=== PATIENT | female | born 1975 | race Caucasian/White ===

== ENCOUNTER 2017-12-25 12:53 | Observation (INO) | payer MEDICARE, OTHER ==
[2017-12-25] MEDS ORDERED: SODIUM CHLORIDE 0.9% 1,000 ML IV STA (12:57)
[2017-12-25] MEDS ORDERED: NITROGLYCERIN SL TABS 0.4 MG TAB SUBLINGUAL STA (12:57)
--- NOTE | 2017-12-25 13:06 | ED ---
Chest Pain HPI - General Stated Complaint: Chest pain Time Seen by Provider: 12/25/17 12:53 Source: patient, EMS, RN notes reviewed Mode of arrival: EMS - History of Present Illness Initial Comments: This is a 42-year-old female history of anxiety who states she had the onset of a chest heaviness 01 and one half hours ago when she was riding in the car she states she has some radiation down to her right arm and elbow she states that feels heavy. He states the pain was initially 7-8/10 currently not a 3-4. She did take an Ativan about 15 minutes prior to arrival of EMS personnel. She was given 324 mg aspirin. EKG was done a transmitted to the emergency department showing no evidence of acute ST-T wave changes. She denies any cough fevers chills nausea vomiting sweats again she's been under last stress apparently lately. She does have a history of a previous right hip replacement 12 years ago no known history of heart or lung disease herself. MD Complaint: chest pain - Related Data Home Medications Medication Instructions Recorded Confirmed HYDROcodone/APAP 10-325MG [[place] 0.5 - 1 tab PO TID PRN 05/24/16 12/25/17 10-325] LORazepam [Ativan] 1 - 2 mg PO DAILY PRN 05/24/16 12/25/17 Phentermine HCl [Adipex-P] 37.5 mg PO QAM 05/24/16 12/25/17 Allergies Allergy/AdvReac Type Severity Reaction Status Date / Time latex Allergy Swelling Verified 12/25/17 14:46 codeine AdvReac Hallucinati Verified 12/25/17 14:46 ons prochlorperazine AdvReac Hallucinati Verified 12/25/17 14:46 [From Compazine] ons Review of Systems ROS Statement: Those systems with pertinent positive or pertinent negative responses have been documented in the HPI. ROS Other: All systems not noted in ROS Statement are negative. EKG Findings - EKG Results: EKG: interpreted by COLTEN, sinus rhythm (Normal sinus rhythm rate of 80. Interval 140 QRS duration 80 QT since QTC of 386/[address]-T wave changes also no change when compared to the one submitted by EMS.) Past Medical History Additional Past Medical History / Comment(s): hypercholestremia, Hip Dysplasia, Back pain History of Any Multi-Drug Resistant Organisms: None Reported Past Surgical History: Section Additional Past Surgical History / Comment(s): Lap Band Past Psychological History: No Psychological Hx Reported Smoking Status: Current every day smoker Past Alcohol Use History: Occasional Past Drug Use History: None Reported General Exam - General Exam Comments Initial Comments: This is a well-developed well-nourished awake alert oriented 3 female General appearance: alert, anxious Head exam: Present: atraumatic, normocephalic, normal inspection Eye exam: Present: normal appearance, PERRL, EOMI. Absent: scleral icterus, conjunctival injection, periorbital swelling ENT exam: Present: normal exam, mucous membranes moist Neck exam: Present: normal inspection, tenderness. Absent: meningismus, lymphadenopathy Respiratory exam: Present: normal lung sounds bilaterally. Absent: respiratory distress, wheezes, rales, rhonchi, stridor Cardiovascular Exam: Present: regular rate, normal rhythm, normal heart sounds. Absent: systolic murmur, diastolic murmur, rubs, gallop, clicks GI/Abdominal exam: Present: soft, normal bowel sounds. 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 Absent: full ROM, pedal edema, joint swelling, calf tenderness Back exam: Present: normal inspection Neurological exam: Present: alert, oriented X3, CN II-XII intact Psychiatric exam: Present: normal affect, anxious Skin exam: Present: warm, dry, intact, normal color. Absent: rash Course Vital Signs 12/25/17 12/25/17 12:59 14:10 Temperature 97.8 F Pulse Rate 89 76 Respiratory 16 16 Rate Blood Pressure 125/75 125/75 O2 Sat by Pulse 99 100 Oximetry - Reevaluation(s) Reevaluation #1: 12/25/17 14:50 Reevaluation patient reveals that she has no pain at this time she believes the nitroglycerin did help make the chest pressure go away. Chest Pain MDM - MDM Review the imaging shows no acute findings. I did have a discussion with patient family members regarding the findings the patient will be admitted for evaluation for chest pain and suspected angina. Critical Care Time Critical Care Time: Yes Critical Care Time: 31 minutes of critical care time which includes initial presentation with history physical labs x-rays discussed with paramedics monitoring the EMS run. Reevaluation patient responsive therapy. Discussed with patient family regarding findings discussion with the admitting physician admission orders documentation of the above Disposition Clinical Impression: Unstable angina pectoris, Chest pain Disposition: ADMITTED IP TO THIS [facility] Condition: Stable Referrals: Gabriel Love MD [Primary Care Provider] - 1-2 days
[2017-12-25 13:22] LABS: Basophils % (A) 0 %; Eosinophils # (A) 0.1 k/uL (0-0.7); Eosinophils % (A) 1 %; HCT 39.5 % (34.0-46.0); HGB 13.3 gm/dL (11.4-16.0); Lymphocytes # (A) 1.7 k/uL (1.0-4.8); Lymphocytes % (A) 27 %; MCHC 33.8 g/dL (31.0-37.0); MCV 94.6 fL (80.0-100.0); Mean Platelet Volume 7.3; Monocytes # (A) 0.3 k/uL (0-1.0); Monocytes % (A) 5 %; Neutrophils % (A) 64 %; Platelet Count 241 k/uL (150-450); RBC 4.17 m/uL (3.80-5.40); RDW 12.5 % (11.5-15.5); WBC 6.1 k/uL (3.8-10.6)
--- NOTE | 2017-12-25 13:27 | XR ---
EXAMINATION TYPE: XR chest 2V DATE OF EXAM: 12/25/2017 HISTORY: Chest Pain. REFERENCE: NONE. FINDINGS: The lungs are clear. Pleural space are clear. The heart is not enlarged. IMPRESSION: NO ACTIVE INTRATHORACIC DISEASE.
[2017-12-25 13:30] LABS: ALT 31 U/L (9-52); AST 21 U/L (14-36); Albumin 3.9 g/dL (3.5-5.0); Alkaline Phosphatase 63 U/L (38-126); Amylase 43 U/L (30-110); Anion Gap 12 mmol/L; Blood Urea Nitrogen 13 mg/dL (7-17); Calcium 9.2 mg/dL (8.4-10.2); Carbon Dioxide 23 mmol/L (22-30); Chloride 105 mmol/L (98-107); D-Dimer 0.34 mg/L FEU (<0.60); Glucose 88 mg/dL (74-99); Lipase 124 U/L (23-300); Magnesium 2.2 mg/dL (1.6-2.3); Partial Thromboplastin Time 22.4 sec (22.0-30.0); Potassium 4.4 mmol/L (3.5-5.1); Prothrombin Time 10.1 sec (9.0-12.0); Sodium 140 mmol/L (137-145); Total Bilirubin 0.4 mg/dL (0.2-1.3); Total Protein 6.3 g/dL (6.3-8.2)
[2017-12-25 13:40] LABS: Creatine Kinase 48 U/L (30-135)
[2017-12-25 13:54] LABS: Creatine Kinase MB 0.3 ng/mL (0.0-2.4); Troponin I <0.012 ng/mL (0.000-0.034)
[2017-12-25] MEDS ORDERED: HEPARIN SODIUM,PORCINE 5,000 UNIT/ML 1 ML VIAL IV ONE (14:51)
[2017-12-25] MEDS ORDERED: NITROGLYCERIN SL TABS 0.4 MG TAB SUBLINGUAL PRN (14:51)
[2017-12-25] MEDS ORDERED: HYDROcodone/APAP 10-325MG 1 EACH TAB PO PRN (14:54)
[2017-12-25] MEDS ORDERED: SODIUM CHLORIDE 0.9% 1,000 ML IV SCH (15:00)
[2017-12-25] MEDS ORDERED: HEPARIN SODIUM,PORCINE/D5W PMX 25,000 UNIT in DEXTROSE/WATER 1 500ML.BAG IV SCH (15:00)
[2017-12-25 17:07] VITALS: BMI 29.4
[2017-12-25] MEDS: NITROGLYCERIN OINT 1 INCH/GM PACKET TOPICAL SCH ×2 (17:15→22:54)
[2017-12-25 19:53] LABS: Creatine Kinase 42 U/L (30-135)
[2017-12-25 20:06] LABS: Creatine Kinase MB <0.2 ng/mL (0.0-2.4); Troponin I <0.012 ng/mL (0.000-0.034)
[2017-12-25] MEDS: HYDROcodone/APAP 5-325MG 1 EACH TAB PO PRN (21:09)
[2017-12-25] MEDS: LORazepam 1 MG TAB PO PRN (22:19)
[2017-12-25] MEDS ORDERED: RX INFO: IV CONTRAST WAS GIVEN 1 EACH MISC MISCELLANE PRN (23:40)
[2017-12-25 23:47] VITALS: RESP 18
[2017-12-26 01:51] LABS: Creatine Kinase 40 U/L (30-135)
[2017-12-26 02:04] LABS: Creatine Kinase MB <0.2 ng/mL (0.0-2.4); Troponin I <0.012 ng/mL (0.000-0.034)
[2017-12-26 03:20] LABS: Cholesterol 206 mg/dL (<200); HDL Cholesterol 51 mg/dL (40-60); LDL Cholesterol,Calculated 138 mg/dL (0-99); Triglycerides 84 mg/dL (<150)
[2017-12-26] MEDS: NITROGLYCERIN OINT 1 INCH/GM PACKET TOPICAL SCH (05:25)
--- NOTE | 2017-12-26 06:02 | HP ---
HISTORY AND PHYSICAL DATE OF SERVICE: 12/25/17 PRESENTING COMPLAINT: Multiple symptoms. HISTORY OF PRESENTING COMPLAINT: This is a 42-year-old patient of Dr. Love. Chronic stable medical conditions include hypertension, hyperlipidemia, anxiety, and patient has got a weak left leg from hip dysplasia. The patient has had joint replacement, but the leg is still chronically weak. The patient is under some stress because of significant other had left the house for about a week. The patient presents with multitude of symptoms including feeling nausea and dizzy, eyes hurting, sharp pain in the chest, right arm specially feeling numb and having pain. It may be noted that the patient has occasional neck pain and has got a herniated disc in the neck and has followed with Dr. Carrillo in the past. The patient denies any other cardiac symptoms with no radiation to the shoulder. There was no perspiration. There is minimal shortness of breath. Because of these symptoms, the patient was admitted. Patient's significant other is with her. The patient has had panic attacks in the past, but she feels that this episode is different. REVIEW OF SYSTEMS: CONSTITUTIONAL: None. HEENT none. Respiratory as above. Cardiovascular as above. Gastrointestinal none. Genitourinary none. Musculoskeletal: Arthritic pain in the some joints. Dermatological and hematologic, lymphatic none. Psychiatry anxious. Neurological none. PAST HISTORY: Hypertension, hyperlipidemia, left hip dysplasia with joint being replaced, anxiety. PAST SURGICAL HISTORY: Bariatric surgery, , cholecystectomy, joint replacement, lap band, left hip replacement, NovaSure ablation, tubes tied. SOCIAL HISTORY: Lives with daughter and significant other. FAMILY HISTORY: Uterine cancer. HOME MEDICATIONS: 1. [place] 10 half to 1 tablet t.i.d. p.r.n. 2. Adipex-P 37.5 one tab daily. 3. Ativan 1-2 mg daily p.r.n. ALLERGIES: TO LATEX, CODEINE, COMPAZINE. PHYSICAL EXAMINATION: Temperature 98.2, pulse 79, respirations 16, blood pressure 101/73, pulse ox 100% on room air. General appearance: Average built, sitting up, but anxious appearing. Eyes pupils equal, conjunctivae normal. HEENT: External appearance of nose and ears normal. Oral cavity normal. Neck JVD not raised. Mass not palpable. Respiratory effort lungs are clear. Cardiovascular 1st and 2nd sounds normal. No edema. ABDOMEN: Soft, nontender. Liver and spleen not palpable. Lymphatics: No lymph nodes palpable in the neck, axillae or groin. PSYCHIATRY: Alert and oriented x3. Mood and affect anxious-appearing. Neurological pupils are equal. Cranial nerves grossly intact. The patient is weak in the left leg. Otherwise, sensation is grossly intact. Reflexes are equal. INVESTIGATIONS: White count 6.1, hemoglobin 13.3, potassium 4.4, BUN and creatinine is normal. Troponin times two is negative. ProBNP is 87. Chest x-ray, no active disease. EKG normal sinus rhythm. ASSESSMENT: 1. Patient presents with multitude of symptoms including nausea disease, some sharp chest pain, numbness in the arm. I think overall picture is more bed of panic attack given fiancee leaving the house. The patient's presentation is not typical of cardiac, but the patient is concerned about the same and serial cardiac enzymes are in place. We will get a cardiology opinion. Also the patient's symptoms are not compatible with that of a stroke or a TIA. We will get a CT angio of the brain. Highly doubt that to be the case. 2. Essential hypertension. 3. Hyperlipidemia. 4. Anxiety. PLAN: Do a CT angio of the brain. Serial cardiac enzymes. Cardiology and neurology consultation. Also get a carotid Doppler, and EEG. Care was discussed with the patient and significant other at the bedside. Copy to Dr. Love. CLEMENT / MAIA: [id number] /
[2017-12-26] MEDS ORDERED: Phentermine Hcl [Adipex-P] PO SCH (09:00)
[2017-12-26] MEDS ORDERED: ASPIRIN 325 MG TAB PO SCH (09:00)
--- NOTE | 2017-12-26 09:32 | CT ---
EXAMINATION TYPE: CT angio head neck DATE OF EXAM: 12/26/2017 HISTORY: Patient complains of blurry vision, nausea, and right arm weakness/numbness. COMPARISON: NONE CT DLP: 317.1 mGycm. Automated Exposure Control for Dose Reduction was Utilized. TECHNIQUE: CTA scan of the neck is performed with IV Contrast, patient injected with 65 mL of Isovue 370, axial images are obtained, coronal and sagittal reformatted images are reviewed. Three-D recons tructed images are created on an independent workstation and reviewed. FINDINGS: Thyroid gland enhances normally. Lung apices are clear. The visualized portion of the aortic arch demonstrates no significant atherosclerotic change. The lucita gins of the great vessels are widely patent. The visualized portion of the subclavian arteries are widely patent. Common carotid arteries are widely patent bilaterally. Carotid bifurcations are widely patent with no significant stenosis. Vertebral arteries are patent with slight dominance on the left. Hypertrophic change facets are noted within the cervical spine Vertebral basilar system is patent and of normal caliber. Evaluation the mechoopda of [place] demonstrates no diagnostic evidence of sizable aneurysm. IMPRESSION: 1. No significant stenosis involving the carotid artery bifurcations bilaterally. 2. No sizable aneurysm. Consider MRI follow-up given patient's symptoms.
--- NOTE | 2017-12-26 10:25 | ECHOF ---
Referral Reason:chest pain MEASUREMENTS -------- HEIGHT: 152.4 cm WEIGHT: 93.0 kg BP: 86/46 RVIDd: 2.6 cm (< 3.3) IVSd: 1.0 cm (0.6 - 1.1) LVIDd: 4.2 cm (3.9 - 5.3) LVPWd: 0.9 cm (0.6 - 1.1) IVSs: 1.1 cm LVIDs: 3.3 cm LVPWs: 1.2 cm LA Diam: 3.2 cm (2.7 - 3.8) Ao Diam: 2.8 cm (2.0 - 3.7) AV Cusp: 1.8 cm (1.5 - 2.6) LA Diam: 3.3 cm (2.7 - 3.8) EPSS: 0.4 cm MV E Doug: 0.57 m/s MV DecT: 181 ms MV A Doug: 0.59 m/s MV E/A Ratio: 0.97 RAP: 5.00 mmHg RVSP: 20.98 mmHg MV EF SLOPE: 122.83 mm/s (70 - 150) MV EXCURSION: 1.73 cm (> 18.000) FINDINGS -------- Sinus rhythm. This was a technically good study. LV size, wall thickness and systolic function are normal, with an EF greater than 55%. The left jewel tricular size is normal. The right ventricle is normal in size. The left atrial size is normal. The right atrial size is normal. The aortic valve is trileaflet, and appears structurally normal. No aortic stenosis or regurgitation. The mitral valve is normal. Mild mitral regurgitation is present. Mild tricuspid regurgitation present. There is no evidence of pulmonary hypertension. The right v entricular systolic pressure, as measured by Doppler, is 20.98mmHg. There is no pulmonic regurgitation present. The aortic root size is normal. There is no pericardial effusion. CONCLUSIONS -------- 1. Sinus rhythm. 2. This was a technically good study. 3. LV size, wall thickness and systolic function are normal, with an EF greater than 55%. 4. The left ventricular size is normal. 5. The left atrial size is normal. 6. The aortic valve is trileaflet, and appears structurally normal. No aortic stenosis or regurgitati on. 7. Mild mitral regurgitation is present. 8. Mild tricuspid regurgitation present. 9. There is no evidence of pulmonary hypertension. 10. There is no pulmonic regurgitation present. 11. The aortic root size is normal. 12. There is no pericardial effusion. SIFTER OPERATOR: Kinza Mark RDCS
[2017-12-26] MEDS: HYDROcodone/APAP 5-325MG 1 EACH TAB PO PRN (11:16)
[2017-12-26 11:26] VITALS: BP 112/63; PULSE 95; TEMP 97.9
--- NOTE | 2017-12-26 11:32 | P.CRDCN ---
History of Present Illness Consult date: 12/26/17 History of present illness: Mrs. Rebolledo is a pleasant 42-year-old female past medical history significant for hip dysplasia s/p hip replacement, dyslipidemia, nicotine dependence and anxiety with panic attacks. She denies history of coronary artery disease, hypertension or diabetes mellitus. She has no family history of coronary artery disease. We have been asked to see her in consultation for chest pain. She states she was at home yesterday afternoon when she developed nausea, dizziness and her vision went black momentarily. She then developed a pain down her right arm described as heaviness with a sharp pain in the left precordial region. The pain was brief and went away. The right arm continued to feel discomfort and then she started having shortness of breath. After her breathing worsening she started having a tightness across her entire anterior chest wall from shoulder to shoulder. She decided to come to the hospital for evaluation and her significant other was driving her. On the ride here the right arm discomfort intensified and began to feel so heavy that she couldn't lift it. She took 2 mg of Ativan, pulled over and called EMS. EMS gave her aspirin and SL. By the time she arrived at the hospital the chest pain had resolved but the right arm heaviness persisted. She denies palpitations, diaphoresis or vomiting. She also denies radiation to the left arm, back, neck or jaw. She has had no further symptoms of chest pain since admission. EKG reveals sinus mechanism with no acute ST or T-wave abnormalities. Chest xray negative for an acute cardiopulmonary process. Laboratory data reviewed, hgb 13.3, plt 241, d-dimer 0.34, sodium 140, potassium 4.4, creatinine 0.8, magnesium 2.2, cardiac enzymes negative 3, LDL 138, HDL 51. Current medications include adipex, norco and ativan. Review of Systems The time of my exam: CONSTITUTIONAL: Denies fever. Denies chills. EYES: Denies blurred vision. Denies vision changes. Denies eye pain. EARS, NOSE, MOUTH & THROAT: Denies headache. Denies sore throat. Denies ear pain. CARDIOVASCULAR: Denies chest pain. Denies shortness of breath. Denies orthopnea. Denies PND. Denies palpitations. RESPIRATORY: Denies cough. GASTROINTESTINAL: Denies abdominal pain. Denies diarrhea. Denies constipation. Denies nausea. Denies vomiting. MUSCULOSKELETAL: Complains of right arm discomfort. INTEGUMENTARY: Denies pruitis. Denies rash. NEUROLOGIC: Denies numbness. Denies tingling. Denies weakness. PSYCHIATRIC: Denies anxiety. Denies depression. ENDOCRINE: Denies fatigue. Denies weight change. Denies polydipsia. Denies polyurina. GENITOURINARY: Denies burning, hematuria or urgency with micturation. HEMATOLOGIC: Denies history of anemia. Denies bleeding. Past Medical History Past Medical History: Hyperlipidemia Additional Past Medical History / Comment(s): hypercholestremia, Hip Dysplasia, Back pain History of Any Multi-Drug Resistant Organisms: None Reported Past Surgical History: Bariatric Surgery, Section, Cholecystectomy, Joint Replacement Additional Past Surgical History / Comment(s): Lap Band, left hip total replacement, Novasure ablation, Tubes tied Past Anesthesia/Blood Transfusion Reactions: Previous Problems w/ Anesthesia, Postoperative Nausea & Vomiting (PONV) Additional Past Anesthesia/Blood Transfusion Reaction / Comment(s): vision problems with local (c-sect) Past Psychological History: No Psychological Hx Reported Smoking Status: Former smoker Past Alcohol Use History: Occasional Past Drug Use History: None Reported Additional Drug Use History / Comment(s): Patient uses 300mg, and considers herself a social drinking - Past Family History Mother Family Medical History: Cancer Additional Family Medical History / Comment(s): CA (uterine), Father Family Medical History: Hypertension, Memory Impairment Additional Family Medical History / Comment(s): closed head injury that caused HTN. 2016 Medications and Allergies Home Medications Medication Instructions Recorded Confirmed Type HYDROcodone/APAP 10-325MG [[place] 1 tab PO TID PRN 05/24/16 12/25/17 History 10-325] LORazepam [Ativan] 1 - 2 mg PO DAILY PRN 05/24/16 12/25/17 History Phentermine HCl [Adipex-P] 37.5 mg PO QAM 05/24/16 12/25/17 History Allergies Allergy/AdvReac Type Severity Reaction Status Date / Time latex Allergy Swelling Verified 12/25/17 14:46 codeine AdvReac Hallucinati Verified 12/25/17 14:46 ons prochlorperazine AdvReac Hallucinati Verified 12/25/17 14:46 [From Compazine] ons Physical Exam Vitals: Vital Signs Temp Pulse Pulse Resp BP BP Pulse Ox 12/26/17 07:10 98.0 F 80 18 97/53 97 12/26/17 04:00 98.2 F 72 18 86/46 96 12/26/17 00:00 88 18 12/25/17 23:47 98.6 F 88 18 113/62 98 12/25/17 20:00 97.8 F 90 16 119/63 100 12/25/17 16:39 98 12/25/17 16:08 98.2 F 79 16 111/73 100 12/25/17 15:48 97.9 F 90 18 126/69 98 12/25/17 14:55 84 16 142/81 99 12/25/17 14:10 76 16 125/75 100 12/25/17 12:59 97.8 F 89 16 125/75 99 Intake and Output 12/25/17 12/26/17 12/26/17 22:59 06:59 14:59 Intake Total 1843.112 Balance 1843.112 Intake: IV 200 Heparin Sodium,Porcine/ 200 D5w Pmx 25,000 unit In Dextrose/Water 1 500ml. bag @ 10.76 UNITS/KG/HR 20.01 mls/hr IV .Q24H [facility] Rx#:[id number] Intake, IV Titration 543.112 Amount Heparin Sodium,Porcine/ 303.112 D5w Pmx 25,000 unit In Dextrose/Water 1 500ml. bag @ 10.76 UNITS/KG/HR 20.01 mls/hr IV .Q24H [facility] Rx#:[id number] Sodium Chloride 0.9% 1, 240 000 ml @ 20 mls/hr IV . Q24H [facility] Rx#:[id number] Oral 1100 Other: Voiding Method Toilet Toilet # Voids 2 Weight 92.986 kg Blood pressure 97/53 heart rate 88 afebrile maintaining oxygen saturation on room air GENERAL: This is a 42-year-old female in no apparent distress at the time of my examination. HEENT: Head is atraumatic, normocephalic. Pupils are equal, round. Sclerae anicteric. Conjunctivae are clear. Mucous membranes of the mouth are moist. Neck is supple. There is no jugular venous distention. No carotid bruit is heard. LUNGS: Clear to auscultation no wheezes, rales or rhonchi. No chest wall tenderness is noted on palpation or with deep breathing. HEART: Regular rate and rhythm without murmurs, rubs or gallops. S1 and S2 heard. ABDOMEN: Soft, nontender. Bowel sounds are heard. No organomegaly noted. EXTREMITIES: No evidence of peripheral edema and no calf tenderness noted. VASCULAR: Radial and dorsalis pedis pulses palpated, no evidence of clubbing. NEUROLOGIC: Patient is awake, alert and oriented x3. Results 12/25/17 13:10 12/25/17 13:10 Cardiac Enzymes 12/25/17 12/25/17 12/25/17 Range/Units 13:10 13:10 19:20 AST 21 (14-36) U/L CK-MB (CK-2) 0.3 <0.2 (0.0-2.4) ng/mL Troponin I <0.012 <0.012 (0.000-0.034) ng/mL 12/26/17 Range/Units 01:21 AST (14-36) U/L CK-MB (CK-2) <0.2 (0.0-2.4) ng/mL Troponin I <0.012 (0.000-0.034) ng/mL Coagulation 12/25/17 12/26/17 Range/Units 13:10 01:21 PT 10.1 (9.0-12.0) sec APTT 22.4 31.6 H (22.0-30.0) sec Lipids 12/25/17 Range/Units 13:10 Triglycerides 84 (<150) mg/dL Cholesterol 206 H (<200) mg/dL HDL Cholesterol 51 (40-60) mg/dL CBC 12/25/17 Range/Units 13:10 WBC 6.1 (3.8-10.6) k/uL RBC 4.17 (3.80-5.40) m/uL Hgb 13.3 (11.4-16.0) gm/dL Hct 39.5 (34.0-46.0) % Plt Count 241 (150-450) k/uL Comprehensive Metabolic Panel 12/25/17 Range/Units 13:10 Sodium 140 (137-145) mmol/L Potassium 4.4 (3.5-5.1) mmol/L Chloride 105 (98-107) mmol/L Carbon Dioxide 23 (22-30) mmol/L BUN 13 (7-17) mg/dL Creatinine 0.80 (0.52-1.04) mg/dL Glucose 88 (74-99) mg/dL Calcium 9.2 (8.4-10.2) mg/dL AST 21 (14-36) U/L ALT 31 (9-52) U/L Alkaline Phosphatase 63 (38-126) U/L Total Protein 6.3 (6.3-8.2) g/dL Albumin 3.9 (3.5-5.0) g/dL Current Medications Generic Name Dose Route Start Last Admin Trade Name Freq PRN Reason Stop Dose Admin Hydrocodone Bitart/Acetaminophen 1 each 12/25/17 20:56 12/25/17 21:09 [place] 5-325 PO 1 each Q4HR PRN Administration Pain Aspirin 325 mg 12/26/17 09:00 Aspirin PO DAILY [facility] Sodium Chloride 1,000 mls @ 20 mls/hr 12/25/17 15:00 12/25/17 16:12 [place]ine 0.9% IV Not Given .Q24H [facility] Lorazepam 1 mg 12/25/17 14:54 12/25/17 22:19 Ativan PO 1 mg DAILY PRN Administration Anxiety Miscellaneous Information 1 each 12/25/17 23:40 Rx Info: Iv Contrast Was Given MISCELLANE 12/27/17 23:41 DAILY PRN Per Protocol Nitroglycerin 0.4 mg 12/25/17 14:51 Nitrostat SUBLINGUAL Q5M PRN Chest Pain Phentermine Hcl [ 37.5 mg 12/26/17 09:00 Adipex-P] PO QAM [facility] Intake and Output 12/25/17 12/26/17 12/26/17 22:59 06:59 14:59 Intake Total 1843.112 Balance 1843.112 Intake: IV 200 Heparin Sodium,Porcine/ 200 D5w Pmx 25,000 unit In Dextrose/Water 1 500ml. bag @ 10.76 UNITS/KG/HR 20.01 mls/hr IV .Q24H [facility] Rx#:[id number] Intake, IV Titration 543.112 Amount Heparin Sodium,Porcine/ 303.112 D5w Pmx 25,000 unit In Dextrose/Water 1 500ml. bag @ 10.76 UNITS/KG/HR 20.01 mls/hr IV .Q24H [facility] Rx#:[id number] Sodium Chloride 0.9% 1, 240 000 ml @ 20 mls/hr IV . Q24H [facility] Rx#:[id number] Oral 1100 Other: Voiding Method Toilet Toilet # Voids 2 Weight 92.986 kg 12/25/17 13:10 12/25/17 13:10 Assessment and Plan Assessment: ASSESSMENT 1. Chest pain, atypical. An acute coronary event has been ruled out with no EKG evidence of ischemia and negative cardiac enzymes. 2. History of hyperlipidemia 3. Chronic nicotine dependence 4. History of anxiety PLAN An acute coronary event has been ruled out. Discontinue heparin infusion and nitropaste. Echocardiogram has been obtained and reviewed with no significant abnormalities. Increase activity and ambulation on the unit. No further cardiac work-up at this time. Thank you kindly for this consultation. Nurse Practitioner note has been reviewed, I agree with a documented findings and plan of care. Patient was seen and examined.
[2017-12-26] MEDS: LORazepam 1 MG TAB PO PRN (12:04)
--- NOTE | 2017-12-26 13:00 | XR ---
EXAMINATION TYPE: XR cervical spine w flex/ext DATE OF EXAM: 12/26/2017 COMPARISON: NONE HISTORY: Pain TECHNIQUE: Seven views are submitted including flexion-extension lateral views. FINDINGS: The odontoid is intact. There are no compression deformities. The prevertebral soft tissue structur es are within normal limits. There is a 2 mm anterolisthesis of C4 on C5 and C5 and C6 on flexion vi ews and 2 mm retrolisthesis of C2-3, C3-4 and C4-C5 on extension views. IMPRESSION: 1. There appears to be alignment adjustment on flexion and extension views as discussed above which c ould be related to ligamentous laxity. Correlation with MRI could BE obtained as clinically warranted .
--- NOTE | 2017-12-26 19:18 | EEG ---
ELECTROENCEPHALOGRAM REPORT DATE OF SERVICE: 12/26/2017. REASON FOR TESTING: Dizziness. DESCRIPTION OF THE PROCEDURE: This EEG was performed using a 21 channel digital electroencephalograph, following international 10-20 system. DESCRIPTION OF THE RECORDING: From the beginning of the tracing, with patient's eyes closed, the background rhythm was mostly consisting of 9 Hz alpha frequency in the posterior occipital leads. No obvious asymmetry is seen. Photic stimulation was performed with a minimal driving response seen. No pathological waves were elicited. Hyperventilation was not performed. The patient does reach stage II of sleep during the tracing and occasional sleep spindles and K complexes are seen. No epileptiform discharges were seen. Occasional movement and muscle artifacts are seen. Her EKG lead showed a regular rate and rhythm. INTERPRETATION: This asleep and awake EEG can be considered within normal limits. There was no asymmetry seen. No epileptiform discharges were noticed. The absence of epileptiform discharges does not rule out the diagnosis of epilepsy, therefore, clinical correlation is recommended. CLEMENT / MAIA: [id number] /
--- NOTE | 2017-12-27 08:25 | DS ---
DISCHARGE SUMMARY DATE OF ADMISSION: 12/25/2017 DATE LEFT AGAINST MEDICAL ADVICE: 12/26/2017 HOSPITAL COURSE: This patient presented with multitude of symptoms more compatible with what appeared to be maybe panic attack. She did not wait for a full workup to be done because of symptoms of dizziness, lightheaded and hand numbness. Patient's angio CT of the brain and neck was unremarkable. EEG was within normal limits. The cervical spine x-ray was suggestive of some ligament laxity. A 2-D echocardiogram showed preserved LV function. The patient did not wait for a formal neurological consultation, wanted to leave AGAINST MEDICAL ADVICE. I asked her to return if things change. CONSULTATION: Dr. Oakley from Cardiology; Dr. Dobbs from Neurology. PHYSICAL EXAMINATION: On examination, lungs are clear. CARDIOVASCULAR: First and second sounds normal. DISCHARGE MEDICATIONS: The patient is not given formal discharge medication because she is leaving AMA. The patient told to follow up with Dr. Love. MMODL / IJN: [id number] /
== END 2017-12-26 12:57 | disposition left against medical advice (07) ==
LOC: EC 12:53 → 3SUR 14:51 → 3OBS 12-26 07:17
PROVIDERS: ADMIT Hospitalist; ATTEND Hospitalist
DX: R07.89 Other chest pain (principal); R42 Dizziness and giddiness; R20.0 Anesthesia of skin; R11.0 Nausea; F41.9 Anxiety disorder, unspecified; I10 Essential (primary) hypertension; M54.9 Dorsalgia, unspecified; E78.5 Hyperlipidemia, unspecified; R53.1 Weakness; F17.200 Nicotine dependence, unspecified, uncomplicated; Z98.84 Bariatric surgery status; Z79.899 Other long term (current) drug therapy; Z96.641 Presence of right artificial hip joint; Q65.89 Other specified congenital deformities of hip; Z88.5 Allergy status to narcotic agent; Z88.8 Allergy status to other drugs, medicaments and biological substances; Z91.040 Latex allergy status; Z82.49 Family history of ischemic heart disease and other diseases of the circulatory system; Z80.49 Family history of malignant neoplasm of other genital organs
CPT/HCPCS: 99291 ×2; 96365 ×2; 96376 ×2; 96361 ×3; 96366 ×2; 36415; 94760; 95819; 93306; 85379; 83880; 80061; 80053; 82150; 82550 ×2; 82553 ×2; 83690; 83735; 84484 ×2; 85025; 85610; 85730 ×2; 72052; 71046; 70496; 70498; G0378 ×2; J1644 ×2; Q9967

== ENCOUNTER → 2018-07-12 | Outpatient (CLI) | payer MEDICARE, OTHER ==
--- NOTE | 2018-07-12 14:29 | CT ---
EXAMINATION TYPE: CT abdomen pelvis w con DATE OF EXAM: 07/12/2018 COMPARISON: 05/22/2007 HISTORY: 43-year-old female complains of generalized pelvic pain. TECHNIQUE: Contiguous axial scanning of the abdomen and pelvis following administration of 100 ml Iso ilir 300 IV contrast. Delayed images through the kidneys and coronal/sagittal reconstructions perform ed. CT DLP: 1115.4 mGycm Automated exposure control for dose reduction was used. FINDINGS: Heart normal size without pericardial effusion. Stable appearance to the patient's lap band. Some focal fat seen along the anterior falciform ligament. No focal liver lesion. Portal venous syste m is patent. Stable mild prominence the bile duct status post cholecystectomy. Adrenal glands within normal limits. Stable bulbous appearance to the pancreatic tail likely normal v ariation. Calcified granulomas within the spleen. Bilateral extrarenal pelves with symmetric uptake and excretion of contrast from the kidneys. No dilated small bowel, free fluid, or free air. There is some focal thickening in the ileocecal region likely represents adherent stool material, ref er to axial image 53. Normal appendix. No mesenteric or retroperitoneal lymphadenopathy. Uterus is anteverted measuring 11.7 cm. There is a round 2.8 cm hypodense lesion in the anterior fund us which appears new from prior. Follicular change in both ovaries. Bilateral tubal ligation clips. N o abnormal fluid collection the pelvis or pelvic lymphadenopathy. Pelvic phleboliths. Bladder is urin e distended. Bones: Left hip total arthroplasty is demonstrated. Mild facet arthropathy lower lumbar spine. Mild e ndplate spondylosis visualized lower thoracic spine. IMPRESSION: HYPERVASCULAR ROUND MASS WITHIN THE ANTERIOR FUNDUS MEASURES 2.8 CM AND WAS NOT CLEARLY SEEN IN 2007. CONSIDER A DEGENERATING FIBROID. THIS SEEMS SEPARATE FROM THE ENDOMETRIUM. FEMALE PELVIC MRI WITHOUT AND WITH CONTRAST COULD FURTHER EVALUATE IF INDICATED. FOLLICULAR CHANGE IN BOTH OVARIES. NO PELVIC FREE FLUID.
== END | disposition home or self-care (01) ==
LOC: RADCTMAIN 11:32
PROVIDERS: ATTEND Family Medicine
DX: R19.09 Other intra-abdominal and pelvic swelling, mass and lump (principal); N83.8 Other noninflammatory disorders of ovary, fallopian tube and broad ligament; R10.2 Pelvic and perineal pain
CPT/HCPCS: 74177; Q9967

== ENCOUNTER → 2018-10-24 | Outpatient (CLI) | payer MEDICARE, OTHER ==
[2018-10-24 13:18] VITALS: BP 115/84; PULSE 88; RESP 16; TEMP 97.3; BMI 32.0
--- NOTE | 2018-10-24 14:35 | P.BASOAP ---
Subjective Progress Note Date: 10/24/18 Principal diagnosis: Morbid obesity, abdominal pain Patient here today for routine bariatric follow-up. Relates that she has had decent restriction from her lap band. She has gained some weight over the last 1 year approximately 10-15 pounds. Patient has had complaints of pain in the right lower quadrant. This is been associated with heavier menstrual flow. Patient concerned about fibroids found on recent radiologic workup. She is interested in hysterectomy apparently. No nausea or vomiting. No reflux. Currently using Adipex daily. Objective - Vital Signs Vital signs: Vital Signs Temp 97.3 F L 10/24/18 13:15 Pulse 88 10/24/18 13:15 Resp 16 10/24/18 13:15 BP 115/84 10/24/18 13:15 Pulse Ox Intake & Output 10/23/18 10/24/18 10/24/18 18:59 06:59 18:59 Weight 101.151 kg - Exam Abdomen: Soft, mild right lower quadrant tenderness, no rebound or guarding Assessment/Plan (1) Morbid obesity Narrative/Plan: Patient doing well from a bariatric standpoint. Continue band a current level. 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 Plan: Date: 10/24/18 Initial Weight: 101.151 kg Initial BMI: 32.0 Current Weight: 101.151 kg Current BMI: 32.0 Type of Surgery: Total Volume in Band: Previous Volume: Volume Removed: Volume Added: Band Size:
== END | disposition home or self-care (01) ==
LOC: BARWHC3 13:08
PROVIDERS: ATTEND Surgery
DX: R10.31 Right lower quadrant pain (principal); E66.01 Morbid (severe) obesity due to excess calories; D25.9 Leiomyoma of uterus, unspecified; Z79.899 Other long term (current) drug therapy; Z98.84 Bariatric surgery status; Z68.32 Body mass index [BMI] 32.0-32.9, adult
CPT/HCPCS: 99211

== ENCOUNTER 2019-01-11 07:02 | Emergency (ER) | payer MEDICARE, OTHER ==
[2019-01-11] MEDS ORDERED: KETOROLAC 30 MG/ML 1 ML VIAL IVP STA (07:33)
[2019-01-11] MEDS ORDERED: cefTRIAXone IN SWFI 1,000 MG/10 ML SYRINGE IVP STA (07:33)
[2019-01-11] MEDS ORDERED: methylPREDNISolone SOD SUCCI 125 MG/2 ML VIAL IV STA (07:33)
[2019-01-11] MEDS ORDERED: SODIUM CHLORIDE 0.9% 1,000 ML IV ONE (07:33)
--- NOTE | 2019-01-11 07:38 | ED ---
ENT HPI - General Chief complaint: ENT Stated complaint: ENT, ALOK Time Seen by Provider: 01/11/19 07:11 Source: patient, RN notes reviewed, old records reviewed Mode of arrival: wheelchair Limitations: physical limitation - History of Present Illness Initial comments: Patient is a 43-year-old female presents emergency department today for evaluation for sore throat, dizziness, unable to swallow for the past 3 days. Patient reports her son has a history of recent strep. Patient denies any recent fever, chills, shortness of breath, chest pain, back pain, abdominal pain, nausea vomiting, numbness or tingling, dysuria or hematuria, constipation or diarrhea, headaches or visual changes, or any other current symptoms - Related Data Home Medications Medication Instructions Recorded Confirmed HYDROcodone/APAP 10-325MG [[place] 1 tab PO TID PRN 05/24/16 01/11/19 10-325] LORazepam [Ativan] 1 - 2 mg PO DAILY PRN 05/24/16 01/11/19 Phentermine HCl [Adipex-P] 37.5 mg PO QAM 05/24/16 01/11/19 Amoxicillin 500 mg PO ONCE 01/11/19 01/11/19 Ibuprofen [Motrin Ib] 800 mg PO Q6H PRN 01/11/19 01/11/19 Previous Rx's Medication Instructions Recorded Azithromycin [Zithromax Z-pack] 250 mg PO DIRECTED #6 tab 01/11/19 methylPREDNISolone [Medrol Dose 4 mg PO DIRECTED #1 pack 01/11/19 Pack] Allergies Allergy/AdvReac Type Severity Reaction Status Date / Time latex Allergy Swelling Verified 01/11/19 07:28 codeine AdvReac Hallucinati Verified 01/11/19 07:28 ons prochlorperazine AdvReac Hallucinati Verified 01/11/19 07:28 [From Compazine] ons Review of Systems ROS Statement: Those systems with pertinent positive or pertinent negative responses have been documented in the HPI. ROS Other: All systems not noted in ROS Statement are negative. Past Medical History Past Medical History: Hyperlipidemia Additional Past Medical History / Comment(s): hypercholestremia, Hip Dysplasia, Back pain History of Any Multi-Drug Resistant Organisms: None Reported Past Surgical History: Bariatric Surgery, Section, Cholecystectomy, Marti int Replacement Additional Past Surgical History / Comment(s): Lap Band, left hip total replacement, Novasure ablation, Tubes tied Past Anesthesia/Blood Transfusion Reactions: Previous Problems w/ Anesthesia, Postoperative Nausea & Vomiting (PONV) Additional Past Anesthesia/Blood Transfusion Reaction / Comment(s): vision pr oblems with local (c-sect) Past Psychological History: No Psychological Hx Reported Smoking Status: Former smoker Past Alcohol Use History: Occasional Past Drug Use History: None Reported - Past Family History Mother Family Medical History: Cancer Additional Family Medical History / Comment(s): CA (uterine), Father Family Medical History: Hypertension, Memory Impairment Additional Family Medical History / Comment(s): closed head injury that caused HTN. 2017 General Exam - General Exam Comments Initial Comments: 43-year-old female. Alert and oriented. No distress. Limitations: physical limitation Head exam: Present: atraumatic, normocephalic, normal inspection Eye exam: Present: normal appearance, PERRL, EOMI. Absent: scleral icterus, conjunctival injection, periorbital swelling ENT exam: Present: normal exam, mucous membranes moist. Absent: other (Erythematous oropharynx, significant exudates noted.) Neck exam: Present: normal inspection. Absent: tenderness, meningismus, lymphadenopathy Respiratory exam: Present: normal lung sounds bilaterally. Absent: respiratory distress, wheezes, rales, rhonchi, stridor Cardiovascular Exam: Present: regular rate, normal rhythm, normal heart sounds. Absent: systolic murmur, diastolic murmur, rubs, gallop, clicks GI/Abdominal exam: Present: soft, normal bowel sounds. Absent: distended, tenderness, guarding, rebound, rigid Extremities exam: Present: normal inspection, full ROM, normal capillary refill. Absent: tenderness, pedal edema, joint swelling, calf tenderness Back exam: Present: normal inspection Neurological exam: Present: alert, oriented X3, CN II-XII intact Psychiatric exam: Present: normal affect, normal mood Skin exam: Present: warm, dry, intact, normal color. Absent: rash Course Vital Signs 01/11/19 07:08 Temperature 97.7 F Pulse Rate 106 H Respiratory 16 Rate Blood Pressure 106/69 O2 Sat by Pulse 99 Oximetry Medical Decision Making - Medical Decision Making Patient is a 43-year-old female process returns today with complaints of sore throat difficulty swallowing for the past 2 days. She has significant exudate and erythematous oropharynx. Son recently is positive for strep. Patient was given fluids states she feels dizzy, scant Toradol slight Medrol and a gram of Rocephin. Patient will be discharged at this time with prescription for azithromycin patient's rapid strep was negative however they does appear to be somewhat strep. Discussed appropriate follow-up with primary care doctor. An discharge and steroid as well. - Lab Data Lab Results 01/11/19 Range/Units 08:00 Group A Strep Rapid Negative (Negative) Disposition Clinical Impression: Pharyngitis Disposition: HOME SELF-CARE Condition: Good Instructions (If sedation given, give patient instructions): Pharyngitis (ED) Additional Instructions: Ice to rest, increase fluid intake. Take medication as prescribed. Should she do frequent to water rinses. Return to the emergency department if any alarming signs or symptoms occur. Prescriptions: methylPREDNISolone [Medrol Dose Pack] 4 mg PO DIRECTED #1 pack Azithromycin [Zithromax Z-pack] 250 mg PO DIRECTED #6 tab Is patient prescribed a controlled substance at d/c from ED?: No Referrals: Gabriel Love MD [Primary Care Provider] - 1-2 days Time of Disposition: 09:11
[2019-01-11 09:36] VITALS: BP 126/77; PULSE 108; RESP 18; TEMP 98
== END 2019-01-11 09:38 | disposition home or self-care (01) ==
LOC: EC 07:02
DX: J02.9 Acute pharyngitis, unspecified (principal); R42 Dizziness and giddiness; R06.00 Dyspnea, unspecified; Z87.891 Personal history of nicotine dependence; Z90.49 Acquired absence of other specified parts of digestive tract; Z96.642 Presence of left artificial hip joint; Z98.84 Bariatric surgery status; Z98.890 Other specified postprocedural states; Z79.899 Other long term (current) drug therapy; Z88.5 Allergy status to narcotic agent; Z88.8 Allergy status to other drugs, medicaments and biological substances; Z91.048 Other nonmedicinal substance allergy status
CPT/HCPCS: 87081; 87430; 99285; 96374; 96375; 96361 ×2; J2930; J0696

== ENCOUNTER 2019-03-13 16:28 | Emergency (ER) | payer MEDICARE, OTHER ==
[2019-03-13 16:34] VITALS: RESP 20
[2019-03-13 17:39] LABS: Basophils % (A) 0 %; Eosinophils # (A) 0.1 k/uL (0-0.7); Eosinophils % (A) 1 %; HCT 41.6 % (34.0-46.0); HGB 13.6 gm/dL (11.4-16.0); Lymphocytes # (A) 1.7 k/uL (1.0-4.8); Lymphocytes % (A) 24 %; MCH 32.4 pg (25.0-35.0); MCHC 32.7 g/dL (31.0-37.0); MCV 99.1 fL (80.0-100.0); Mean Platelet Volume 7.2; Monocytes # (A) 0.4 k/uL (0-1.0); Monocytes % (A) 5 %; Neutrophils # (A) 4.8 k/uL (1.3-7.7); Neutrophils % (A) 69 %; Platelet Count 234 k/uL (150-450); RDW 13.8 % (11.5-15.5); WBC 7.1 k/uL (3.8-10.6)
--- NOTE | 2019-03-13 17:44 | XR ---
EXAMINATION TYPE: XR chest 2V DATE OF EXAM: 03/13/2019 COMPARISON: NONE TECHNIQUE: PA and lateral views submitted. HISTORY: Chest pain FINDINGS: The lungs are clear and there is no pneumothorax, pleural effusion, or focal pneumonia. IMPRESSION: 1. No acute process.
[2019-03-13 17:46] LABS: INR 0.9 (<1.2); Partial Thromboplastin Time 23.3 sec (22.0-30.0); Prothrombin Time 9.8 sec (9.0-12.0)
[2019-03-13 17:49] LABS: ALT 21 U/L (9-52); AST 24 U/L (14-36); African American GFR (CKD) >90 (>60 ml/min/1.73 sqM); Albumin 4.1 g/dL (3.5-5.0); Alkaline Phosphatase 57 U/L (38-126); Anion Gap 8 mmol/L; Blood Urea Nitrogen 16 mg/dL (7-17); Calcium 9.2 mg/dL (8.4-10.2); Carbon Dioxide 26 mmol/L (22-30); Chloride 105 mmol/L (98-107); Glucose 88 mg/dL (74-99); Magnesium 2.4 mg/dL (1.6-2.3); Potassium 4.1 mmol/L (3.5-5.1); Sodium 139 mmol/L (137-145); Total Bilirubin 0.5 mg/dL (0.2-1.3); Total Protein 6.7 g/dL (6.3-8.2)
[2019-03-13] MEDS ORDERED: SODIUM CHLORIDE 0.9% 1,000 ML IV STA (18:36)
--- NOTE | 2019-03-13 18:38 | ED ---
General Adult HPI - General Chief complaint: Chest Pain Stated complaint: Chest pain, hard to speak Time Seen by Provider: 03/13/19 16:34 Source: patient Mode of arrival: ambulatory Limitations: no limitations - History of Present Illness Initial comments: Dictation was produced using [employer] dictation software. please excuse any gramma tical, word or spelling errors. Chief Complaint: 43-year-old female presents with chest pain and feeling as if the world is moving in slow motion. History of Present Illness: Patient's a 43-year-old female she denies any significant medical history. She states that over the last 12 hours she feels as though the room is moving in slow motion. She received bad news in the family recently. Yesterday they were drinking alcohol excessively. She states that today she also had some chest pain she describes the pain as sharp. It is not exacerbated with exertion. Does not radiate to the jaw or shoulder. No associated diaphoresis. Patient has any history of cardiac disease. No family of cardiac disease. She does feel some mild shortness of breath. The ROS documented in this emergency department record has been reviewed and confirmed by me. Those systems with pertinent positive or negative responses have been documented in the HPI. All other systems are other negative and/or noncontributory. PHYSICAL EXAM: General Impression: Alert and oriented x3, not in acute distress HEENT: Normocephalic atraumatic, extra-ocular movements intact, pupils equal and reactive to light bilaterally, mucous membranes moist. Cardiovascular: Heart regular rate and rhythm, S1&S2 audible, no murmurs, rubs or gallops Chest: Lungs clear to auscultation bilaterally, no rhonchi, no wheeze, no rales Abdomen: Bowel sounds present, abdomen soft, non-tender, non-distended, no organomegaly Musculoskeletal: Pulses present and equal in all extremities, no peripheral edema Motor: no focal deficits noted Neurological: CN II-XII grossly intact, no focal motor or sensory deficits noted Skin: Intact with no visualized rashes Psych: Normal affect and mood ED course: 43-year-old female presents with atypical chest pain. Does presents with vague symptoms of interpreted world is moving slowly. She is with his significant other who feels as though this is secondary to stress. She is other stone well-appearing at this time. Physical examination is benign. As upon arrival shows pulse rate of 104, rest of vital signs within acceptable limits. EKGs benign. Laboratory evaluation obtained. CBC, coag panel, metabolic panel is unremarkable. Patient does have an magnesium that slightly high at 2.4. Rest of labs unremarkable. Chest x-ray is nonacute. Patient given intravenous fluids. She requests something for anxiety and her usual unremarkable. His medications are given to her. At this point there is no clear source of what is causing patient's "wooziness." She is told that there does not appear to be anything life threatening at this time. She is alert and oriented 4. She is appears comfortable. She does not have any focal neurologic deficits. Patient told to follow-up with her primary care physician for outpatient management of her symptoms. Patient's chest symptoms are atypical. At this point patient's clinical presentation is not significant for acute cardiopulmonary process at this time. EKG interpretation: Ventricular rate 91, normal sinus rhythm, CA interval 150, care 78, QTc 450. No CA prolongation, no QTC prolongation, no ST or T-wave changes noted. . Overall, this EKG is unremarkable - Related Data Home Medications Medication Instructions Recorded Confirmed HYDROcodone/APAP 10-325MG [[place] 0.5 - 1 tab PO HS 05/24/16 03/13/19 10-325] LORazepam [Ativan] 2 mg PO DAILY PRN 05/24/16 03/13/19 Phentermine HCl [Adipex-P] 37.5 mg PO QAM 05/24/16 03/13/19 Allergies Allergy/AdvReac Type Severity Reaction Status Date / Time latex Allergy Swelling Verified 03/13/19 16:51 codeine AdvReac Hallucinati Verified 03/13/19 16:51 ons prochlorperazine AdvReac Hallucinati Verified 03/13/19 16:51 [From Compazine] ons Review of Systems ROS Statement: Those systems with pertinent positive or pertinent negative responses have been documented in the HPI. ROS Other: All systems not noted in ROS Statement are negative. Past Medical History Past Medical History: Hyperlipidemia Additional Past Medical History / Comment(s): hypercholestremia, Hip Dysplasia, Back pain History of Any Multi-Drug Resistant Organisms: None Reported Past Surgical History: Bariatric Surgery, Section, Cholecystectomy, Joint Replacement Additional Past Surgical History / Comment(s): Lap Band, left hip total replacement, Novasure ablation, Tubes tied Past Anesthesia/Blood Transfusion Reactions: Previous Problems w/ Anesthesia, Postoperative Nausea & Vomiting (PONV) Additional Past Anesthesia/Blood Transfusion Reaction / Comment(s): vision problems with local (c-sect) Past Psychological History: No Psychological Hx Reported Smoking Status: Former smoker Past Alcohol Use History: Occasional Past Drug Use History: None Reported - Past Family History Mother Family Medical History: Cancer Additional Family Medical History / Comment(s): CA (uterine), Father Family Medical History: Hypertension, Memory Impairment Additional Family Medical History / Comment(s): closed head injury that caused HTN. 2017 General Exam Limitations: no limitations Course Vital Signs 03/13/19 16:30 Temperature 98.2 F Pulse Rate 104 H Respiratory 20 Rate Blood Pressure 115/79 O2 Sat by Pulse 97 Oximetry Medical Decision Making - Lab Data Result diagrams: 03/13/19 17:05 03/13/19 17:05 Lab Results 03/13/19 03/13/19 03/13/19 Range/Units 17:05 17:05 17:05 WBC 7.1 (3.8-10.6) k/uL RBC 4.20 (3.80-5.40) m/uL Hgb 13.6 (11.4-16.0) gm/dL Hct 41.6 (34.0-46.0) % MCV 99.1 (80.0-100.0) fL MCH 32.4 (25.0-35.0) pg MCHC 32.7 (31.0-37.0) g/dL RDW 13.8 (11.5-15.5) % Plt Count 234 (150-450) k/uL Neutrophils % 69 % Lymphocytes % 24 % Monocytes % 5 % Eosinophils % 1 % Basophils % 0 % Neutrophils # 4.8 (1.3-7.7) k/uL Lymphocytes # 1.7 (1.0-4.8) k/uL Monocytes # 0.4 (0-1.0) k/uL Eosinophils # 0.1 (0-0.7) k/uL Basophils # 0.0 (0-0.2) k/uL PT 9.8 (9.0-12.0) sec INR 0.9 (<1.2) APTT 23.3 (22.0-30.0) sec Sodium 139 (137-145) mmol/L Potassium 4.1 (3.5-5.1) mmol/L Chloride 105 (98-107) mmol/L Carbon Dioxide 26 (22-30) mmol/L Anion Gap 8 mmol/L BUN 16 (7-17) mg/dL Creatinine 0.85 (0.52-1.04) mg/dL Est GFR (CKD-EPI)AfAm >90 (>60 ml/min/1.73 sqM) Est GFR (CKD-EPI)NonAf 85 (>60 ml/min/1.73 sqM) Glucose 88 (74-99) mg/dL Calcium 9.2 (8.4-10.2) mg/dL Magnesium 2.4 H (1.6-2.3) mg/dL Total Bilirubin 0.5 (0.2-1.3) mg/dL AST 24 (14-36) U/L ALT 21 (9-52) U/L Alkaline Phosphatase 57 (38-126) U/L Troponin I (0.000-0.034) ng/mL Total Protein 6.7 (6.3-8.2) g/dL Albumin 4.1 (3.5-5.0) g/dL 03/13/19 Range/Units 17:05 WBC (3.8-10.6) k/uL RBC (3.80-5.40) m/uL Hgb (11.4-16.0) gm/dL Hct (34.0-46.0) % MCV (80.0-100.0) fL MCH (25.0-35.0) pg MCHC (31.0-37.0) g/dL RDW (11.5-15.5) % Plt Count (150-450) k/uL Neutrophils % % Lymphocytes % % Monocytes % % Eosinophils % % Basophils % % Neutrophils # (1.3-7.7) k/uL Lymphocytes # (1.0-4.8) k/uL Monocytes # (0-1.0) k/uL Eosinophils # (0-0.7) k/uL Basophils # (0-0.2) k/uL PT (9.0-12.0) sec INR (<1.2) APTT (22.0-30.0) sec Sodium (137-145) mmol/L Potassium (3.5-5.1) mmol/L Chloride (98-107) mmol/L Carbon Dioxide (22-30) mmol/L Anion Gap mmol/L BUN (7-17) mg/dL Creatinine (0.52-1.04) mg/dL Est GFR (CKD-EPI)AfAm (>60 ml/min/1.73 sqM) Est GFR (CKD-EPI)NonAf (>60 ml/min/1.73 sqM) Glucose (74-99) mg/dL Calcium (8.4-10.2) mg/dL Magnesium (1.6-2.3) mg/dL Total Bilirubin (0.2-1.3) mg/dL AST (14-36) U/L ALT (9-52) U/L Alkaline Phosphatase (38-126) U/L Troponin I <0.012 (0.000-0.034) ng/mL Total Protein (6.3-8.2) g/dL Albumin (3.5-5.0) g/dL Disposition Clinical Impression: Chest pain Disposition: HOME SELF-CARE Condition: Good Instructions (If sedation given, give patient instructions): Disorders of Consciousness (DC) Is patient prescribed a controlled substance at d/c from ED?: No Referrals: Gabriel Love MD [Primary Care Provider] - 1-2 days Time of Disposition: 20:03
[2019-03-13] MEDS ORDERED: ALPRAZolam 1 MG TAB PO STA (19:55)
[2019-03-13] MEDS ORDERED: oxyCODONE-APAP 7.5-325MG 1 EACH TAB PO STA (19:55)
[2019-03-13] MEDS ORDERED: HYDROcodone/APAP 5-325MG 1 EACH TAB PO STA (20:00)
[2019-03-13 21:03] VITALS: BP 103/70; PULSE 99; TEMP 98.6
== END 2019-03-13 20:35 | disposition home or self-care (01) ==
LOC: EC 16:28
DX: R07.89 Other chest pain (principal); R41.89 Other symptoms and signs involving cognitive functions and awareness; E83.42 Hypomagnesemia; Z96.642 Presence of left artificial hip joint; Z87.891 Personal history of nicotine dependence; Z79.891 Long term (current) use of opiate analgesic; Z79.899 Other long term (current) drug therapy; Z91.040 Latex allergy status; Z88.5 Allergy status to narcotic agent; Z88.8 Allergy status to other drugs, medicaments and biological substances; Z53.8 Procedure and treatment not carried out for other reasons
CPT/HCPCS: 36415; 71046; 80053; 83735; 84484; 85025; 85610; 85730; 93005; 96360; 99285

== ENCOUNTER 2019-09-19 17:43 | Emergency (ER) | payer MEDICARE, OTHER ==
[2019-09-19 17:48] VITALS: RESP 20
[2019-09-19] MEDS ORDERED: ACETAMINOPHEN TAB 500 MG TAB PO STA ×2 (18:28→19:04)
[2019-09-19] MEDS ORDERED: HYDROmorphone 0.5 MG/0.5 ML SYRINGE IVP STA (18:29)
--- NOTE | 2019-09-19 19:02 | ED ---
Fever HPI - General Source: patient Mode of arrival: ambulatory Limitations: no limitations <Angélica Del Rio - Last Filed: 09/19/19 22:46> <Juan Antonio Fitzpatrick - Last Filed: 09/20/19 05:11> - General Chief Complaint: Fever Stated Complaint: POST OP FEVER,VOMITING Time Seen by Provider: 09/19/19 18:08 - History of Present Illness Initial Comments: 44-year-old female patient presents to the emergency department today for evaluation of increased abdominal pain and fever. Patient is postop day #8 after having a transabdominal hysterectomy. Patient underwent surgery with Dr. Bouchra Garrison at [facility] on 09/11/19. Patient states she was discharged on 09/13/19, but had to go back to the hospital that evening for uncontrollable vomiting and diarrhea and was admitted for an additional 3-4 days. Patient states that she was discharged 2 days ago. Patient states that she has been having diarrhea however she taken Imodium today which did seem to slow her stools. States that she has been having increased lower abdominal pain. States that she did develop a temperature of 100.5F at home, she was 101F in triage. Patient denies any abnormal vaginal bleeding or discharge. She denies any drainage from her incision site. She denies any cough or congestion. Denies any hematuria, dysuria, urinary frequency, urinary urgency. Patient denies any recent rash, shortness breath, chest pain, back pain, numbness, tingling, dizziness, weakness, headache, visual changes, or any other complaints. ( Angélica Del Rio) - Related Data Home Medications Medication Instructions Recorded Confirmed HYDROcodone/APAP 10-325MG [[place] 0.5 - 1 tab PO HS 05/24/16 03/13/19 10-325] LORazepam [Ativan] 2 mg PO DAILY PRN 05/24/16 03/13/19 Phentermine HCl [Adipex-P] 37.5 mg PO QAM 05/24/16 03/13/19 Allergies Allergy/AdvReac Type Severity Reaction Status Date / Time latex Allergy Swelling Verified 09/19/19 17:48 codeine AdvReac Hallucinati Verified 09/19/19 17:48 ons prochlorperazine AdvReac Hallucinati Verified 09/19/19 17:48 [From Compazine] ons Review of Systems ROS Other: All systems not noted in ROS Statement are negative. <Angélica Del Rio - Last Filed: 09/19/19 22:46> ROS Other: All systems not noted in ROS Statement are negative. <Juan Antonio Fitzpatrick - Last Filed: 09/20/19 05:11> ROS Statement: Those systems with pertinent positive or pertinent negative responses have been documented in the HPI. Past Medical History Past Medical History: Hyperlipidemia Additional Past Medical History / Comment(s): hypercholestremia, Hip Dysplasia, Back pain History of Any Multi-Drug Resistant Organisms: None Reported Past Surgical History: Bariatric Surgery, Section, Cholecystectomy, Joint Replacement Additional Past Surgical History / Comment(s): Lap Band, left hip total replacement, Novasure ablation, Tubes tied Past Anesthesia/Blood Transfusion Reactions: Previous Problems w/ Anesthesia, Postoperative Nausea & Vomiting (PONV) Additional Past Anesthesia/Blood Transfusion Reaction / Comment(s): vision problems with local (c-sect) Past Psychological History: No Psychological Hx Reported Smoking Status: Former smoker Past Alcohol Use History: Occasional Past Drug Use History: None Reported - Past Family History Mother Family Medical History: Cancer Additional Family Medical History / Comment(s): CA (uterine), Father Family Medical History: Hypertension, Memory Impairment Additional Family Medical History / Comment(s): closed head injury that caused HTN. 2017 <Angélica Del Rio - Last Filed: 09/19/19 22:46> General Exam Limitations: no limitations General appearance: alert, in no apparent distress, other (This is a well-dev eloped, well-nourished adult female patient in no acute distress. Vital signs upon presentation are temperature 101.0F, pulse 116, respirations 20, blood pressure 117/79, pulse ox 96% on room air.) Eye exam: Present: normal appearance, PERRL, EOMI. Absent: scleral icterus, conjunctival injection, periorbital swelling ENT exam: Present: normal exam, normal oropharynx, mucous membranes moist Respiratory exam: Present: normal lung sounds bilaterally. Absent: respiratory distress, wheezes, rales, rhonchi, stridor Cardiovascular Exam: Present: normal rhythm, tachycardia, normal heart sounds. Absent: systolic murmur, diastolic murmur, rubs, gallop, clicks GI/Abdominal exam: Present: soft, tenderness (Lower abdominal tenderness, incisional), normal bowel sounds, other (There is a suprapubic incision which is well approximated with Steri-Strips. There is no surrounding erythema. No drainage.). Absent: distended, guarding, rebound, rigid Neurological exam: Present: alert, oriented X3, CN II-XII intact Psychiatric exam: Present: normal affect, normal mood Skin exam: Present: warm, dry, intact, normal color. Absent: rash <Angélica Del Rio - Last Filed: 09/19/19 22:46> Course Vital Signs 09/19/19 09/19/19 09/19/19 17:44 19:34 22:00 Temperature 101.0 F H 99.4 F Pulse Rate 116 H 104 H Respiratory 20 20 Rate Blood Pressure 117/79 120/71 O2 Sat by Pulse 96 98 Oximetry 09/19/19 09/20/19 23:00 00:35 Temperature 98.3 F 98.3 F Pulse Rate 105 H 104 H Respiratory 20 20 Rate Blood Pressure 117/75 120/71 O2 Sat by Pulse 98 Oximetry Medical Decision Making - Lab Data Result diagrams: 09/19/19 19:00 09/19/19 19:00 - Radiology Data Radiology results: report reviewed, image reviewed <Angélica Del Rio - Last Filed: 09/19/19 22:46> - Lab Data Result diagrams: 09/19/19 19:00 09/19/19 19:00 <Juan Antonio Fitzpatrick - Last Filed: 09/20/19 05:11> - Medical Decision Making 44-year-old female patient presented to the emergency department today for evaluation of abdominal pain and fever. Patient is postop day #8 after having a transabdominal hysterectomy with Dr. Garrison on 09/11/2019. Upon arrival patient did have a temperature elevated at 101.0F. Incision appears unremarkable, no surrounding redness, no drainage. CT abdomen and pelvis was obtained and did show evidence for severe ileus versus small bowel obstruction. Liver enzymes were elevated, alk phos elevated, there was evidence for dilated biliary tree on computed tomography scan. Patient has had no vomiting episodes on the emergency department. We will transfer back to [facility] where she had her procedure for further evaluation. (Angélica Del Rio) I saw this patient in conjunction with the physician communications assistant. I performed independent history and physical exam. Agree with case management. (Juan Antonio Fitzpatrick) - Lab Data Lab Results 09/19/19 09/19/19 09/19/19 Range/Units 17:50 19:00 19:00 WBC 5.0 (3.8-10.6) k/uL RBC 3.93 (3.80-5.40) m/uL Hgb 12.6 (11.4-16.0) gm/dL Hct 38.0 (34.0-46.0) % MCV 96.6 (80.0-100.0) fL MCH 32.0 (25.0-35.0) pg MCHC 33.1 (31.0-37.0) g/dL RDW 12.3 (11.5-15.5) % Plt Count 357 (150-450) k/uL Neutrophils % 73 % Lymphocytes % 12 % Monocytes % 8 % Eosinophils % 2 % Basophils % 3 % Neutrophils # 3.6 (1.3-7.7) k/uL Lymphocytes # 0.6 L (1.0-4.8) k/uL Monocytes # 0.4 (0-1.0) k/uL Eosinophils # 0.1 (0-0.7) k/uL Basophils # 0.1 (0-0.2) k/uL PT (9.0-12.0) sec INR (<1.2) APTT (22.0-30.0) sec Sodium 132 L (137-145) mmol/L Potassium 3.4 L (3.5-5.1) mmol/L Chloride 96 L (98-107) mmol/L Carbon Dioxide 28 (22-30) mmol/L Anion Gap 8 mmol/L BUN 8 (7-17) mg/dL Creatinine 0.66 (0.52-1.04) mg/dL Est GFR (CKD-EPI)AfAm >90 (>60 ml/min/1.73 sqM) Est GFR (CKD-EPI)NonAf >90 (>60 ml/min/1.73 sqM) Glucose 100 H (74-99) mg/dL Plasma Lactic Acid Mak (0.7-2.0) mmol/L Calcium 9.1 (8.4-10.2) mg/dL Total Bilirubin 1.2 (0.2-1.3) mg/dL AST 300 H (14-36) U/L ALT 273 H (4-34) U/L Alkaline Phosphatase 301 H (38-126) U/L Total Protein 6.4 (6.3-8.2) g/dL Albumin 3.6 (3.5-5.0) g/dL Urine Color Urine Appearance (Clear) Urine pH (5.0-8.0) Ur Specific [place] (1.001-1.035) Urine Protein (Negative) Urine Glucose (UA) (Negative) Urine Ketones (Negative) Urine Blood (Negative) Urine Nitrite (Negative) Urine Bilirubin (Negative) Urine Urobilinogen (<2.0) mg/dL Ur Leukocyte Esterase (Negative) Influenza Type A RNA Not Detected (Not Detectd) Influenza Type B (PCR) Not Detected (Not Detectd) 09/19/19 09/19/19 09/19/19 Range/Units 19:00 19:00 19:00 WBC (3.8-10.6) k/uL RBC (3.80-5.40) m/uL Hgb (11.4-16.0) gm/dL Hct (34.0-46.0) % MCV (80.0-100.0) fL MCH (25.0-35.0) pg MCHC (31.0-37.0) g/dL RDW (11.5-15.5) % Plt Count (150-450) k/uL Neutrophils % % Lymphocytes % % Monocytes % % Eosinophils % % Basophils % % Neutrophils # (1.3-7.7) k/uL Lymphocytes # (1.0-4.8) k/uL Monocytes # (0-1.0) k/uL Eosinophils # (0-0.7) k/uL Basophils # (0-0.2) k/uL PT 9.9 (9.0-12.0) sec INR 0.9 (<1.2) APTT 22.5 (22.0-30.0) sec Sodium (137-145) mmol/L Potassium (3.5-5.1) mmol/L Chloride (98-107) mmol/L Carbon Dioxide (22-30) mmol/L Anion Gap mmol/L BUN (7-17) mg/dL Creatinine (0.52-1.04) mg/dL Est GFR (CKD-EPI)AfAm (>60 ml/min/1.73 sqM) Est GFR (CKD-EPI)NonAf (>60 ml/min/1.73 sqM) Glucose (74-99) mg/dL Plasma Lactic Acid Mak 0.9 (0.7-2.0) mmol/L Calcium (8.4-10.2) mg/dL Total Bilirubin (0.2-1.3) mg/dL AST (14-36) U/L ALT (4-34) U/L Alkaline Phosphatase (38-126) U/L Total Protein (6.3-8.2) g/dL Albumin (3.5-5.0) g/dL Urine Color Yellow Urine Appearance Clear (Clear) Urine pH 6.0 (5.0-8.0) Ur Specific [place] 1.007 (1.001-1.035) Urine Protein Negative (Negative) Urine Glucose (UA) Negative (Negative) Urine Ketones Negative (Negative) Urine Blood Negative (Negative) Urine Nitrite Negative (Negative) Urine Bilirubin Negative (Negative) Urine Urobilinogen <2.0 (<2.0) mg/dL Ur Leukocyte Esterase Negative (Negative) Influenza Type A RNA (Not Detectd) Influenza Type B (PCR) (Not Detectd) - Radiology Data CT abdomen and pelvis with contrast was obtained. Report reviewed in its entirety. Impression by Dr. Monet shows dilated small bowel with fluid. Distended fluid-filled is of large bowel. With considerable severe small bowel ileus as well as a partial mechanical small bowel injection. Bowel abdomen mildly is a change compared to old exam. There is dilated biliary tree that is a change compared to old exam. Distal common bile duct obstruction should be considered (Angélica Del Rio) Disposition - Out of Hospital Transfer - Req. Specs Out of Hospital Transfer - Requested Specifics: Other Emergency Center ([facility]) <Angélica Del Rio - Last Filed: 09/19/19 22:46> <Juan Antonio Fitzpatrick - Last Filed: 09/20/19 05:11> Clinical Impression: Ileus, Small bowel obstruction, Transaminitis Disposition: OTHER INSTITUTION NOT DEFINED Condition: Serious Referrals: Gabriel Love MD [Primary Care Provider] - 1-2 days
[2019-09-19] MEDS ORDERED: HYDROcodone/APAP 5-325MG 1 EACH TAB PO STA (19:04)
[2019-09-19 19:23] LABS: Basophils # (A) 0.1 k/uL (0-0.2); Basophils % (A) 3 %; Eosinophils # (A) 0.1 k/uL (0-0.7); Eosinophils % (A) 2 %; HGB 12.6 gm/dL (11.4-16.0); Lymphocytes # (A) 0.6 k/uL (1.0-4.8); Lymphocytes % (A) 12 %; MCHC 33.1 g/dL (31.0-37.0); MCV 96.6 fL (80.0-100.0); Mean Platelet Volume 7.2; Monocytes # (A) 0.4 k/uL (0-1.0); Monocytes % (A) 8 %; Neutrophils # (A) 3.6 k/uL (1.3-7.7); Neutrophils % (A) 73 %; Platelet Count 357 k/uL (150-450); RBC 3.93 m/uL (3.80-5.40); RDW 12.3 % (11.5-15.5)
[2019-09-19 19:31] LABS: Appearance,Urine Clear (Clear); Bilirubin,Urine Negative (Negative); Blood,Urine Negative (Negative); Color,Urine Yellow; Glucose,Urine (UA) Negative (Negative); Ketones,Urine Negative (Negative); Leukocyte Esterase,Urine Negative (Negative); Nitrite,Urine Negative (Negative); Protein,Urine Negative (Negative); Specific Gravity,Urine 1.007 (1.001-1.035); Urobilinogen,Urine <2.0 mg/dL (<2.0)
[2019-09-19 19:37] LABS: ALT 273 U/L (4-34); AST 300 U/L (14-36); African American GFR (CKD) >90 (>60 ml/min/1.73 sqM); Albumin 3.6 g/dL (3.5-5.0); Alkaline Phosphatase 301 U/L (38-126); Anion Gap 8 mmol/L; Blood Urea Nitrogen 8 mg/dL (7-17); Calcium 9.1 mg/dL (8.4-10.2); Carbon Dioxide 28 mmol/L (22-30); Chloride 96 mmol/L (98-107); Glucose 100 mg/dL (74-99); INR 0.9 (<1.2); Non-African American GFR(CKD) >90 (>60 ml/min/1.73 sqM); Partial Thromboplastin Time 22.5 sec (22.0-30.0); Potassium 3.4 mmol/L (3.5-5.1); Prothrombin Time 9.9 sec (9.0-12.0); Sodium 132 mmol/L (137-145); Total Bilirubin 1.2 mg/dL (0.2-1.3); Total Protein 6.4 g/dL (6.3-8.2)
[2019-09-19] MEDS: SODIUM CHLORIDE 0.9% 500 ML 500 ML IV SCH ×2 (19:45→21:09)
--- NOTE | 2019-09-19 20:30 | CT ---
EXAMINATION TYPE: CT abdomen pelvis w con DATE OF EXAM: 09/19/2019 COMPARISON: 07/12/2018 HISTORY: RLQ pain. Recent hysterectomy CT DLP: 1514.2 mGycm Automated exposure control for dose reduction was used. CONTRAST: Performed with IV Contrast, patient injected with 100 mL of Isovue 300. Multiple axial sections were obtained from the diaphragm to the floor the pelvis with intravenous con trast. There is mild atelectasis at the lung bases more on the left side. Heart size is normal. There is gas tric bariatric surgery with swelling around the gastric fundus. There is small pleural effusion on the left side. There are clips from cholecystectomy. There is mild ectasia of the biliary tree. The common bile duct measures 15 mm. There is no pancreatic mass. Splee n appears normal. There is no discrete liver mass. There is no adrenal mass. Kidneys show satisfactory contrast opacification. There is no hydronephrosi s. Ureters are not dilated. Bladder distends smoothly. There is left hip prosthesis. There is no evidence of free air. There is no ascites. There is some air in the vaginal vault. There is hysterectomy noted. There are multiple dilated fluid-filled loops of small bowel that measure up to 4.5 cm. Appendix is p osterior and appears normal. There is fluid in the large bowel. This extends down to the rectum. Lumb ar vertebra have normal alignment. Posterior elements are intact. Bony pelvis is intact. Lumbar disc spaces are normal. There is no compression fracture. IMPRESSION: Dilated small bowel with fluid. Distended fluid-filled loops of large bowel. I would consider both se salazar small bowel ileus as well as a partial mechanical small bowel obstruction. Bowel abnormality is a change compared to old exam. There is dilated biliary tree that is a change compared to old exam. Distal common bile duct obstruct ion should be considered.
--- NOTE | 2019-09-19 20:32 | XR ---
EXAMINATION TYPE: XR chest 2V DATE OF EXAM: 09/19/2019 COMPARISON: 03/13/2019 HISTORY: Chest pain TECHNIQUE: 2 views FINDINGS: Heart is normal. Lungs are clear. Diaphragm is normal. Bony thorax appears normal. IMPRESSION: Normal chest. No change.
[2019-09-19] MEDS ORDERED: MORPHINE SULFATE 4 MG/ML SYRINGE IV STA (22:14)
[2019-09-19 23:31] VITALS: TEMP 98.3
[2019-09-19] MEDS ORDERED: LORazepam 2 MG/ML INJ IV STA (23:33)
[2019-09-20 00:37] VITALS: BP 120/71; PULSE 104
== END 2019-09-20 00:38 | disposition other institution (70) ==
LOC: EC 17:43
DX: K56.7 Ileus, unspecified (principal); K56.600 Partial intestinal obstruction, unspecified as to cause; K83.1 Obstruction of bile duct; R74.0 Nonspecific elevation of levels of transaminase and lactic acid dehydrogenase [LDH]; R00.0 Tachycardia, unspecified; R50.9 Fever, unspecified; Z79.891 Long term (current) use of opiate analgesic; Z91.040 Latex allergy status; Z88.5 Allergy status to narcotic agent; Z88.8 Allergy status to other drugs, medicaments and biological substances; Z96.642 Presence of left artificial hip joint; Z90.49 Acquired absence of other specified parts of digestive tract; Z98.84 Bariatric surgery status; Z98.890 Other specified postprocedural states; Z90.710 Acquired absence of both cervix and uterus; Z87.891 Personal history of nicotine dependence
CPT/HCPCS: 36415; 93005; 80053; 83605; 85025; 85610; 85730; 81003; 87040; 87502; 71046; 74177; 99285; 96374; 96375; J2060; J2270; Q9967

== ENCOUNTER → 2020-06-24 | Outpatient (CLI) | payer MEDICARE, OTHER ==
--- NOTE | 2020-06-24 15:01 | MM ---
Reason for exam: screening (asymptomatic). Baseline mammogram. History: Family history of breast cancer in paternal grandmother at age 60. Physical Findings: Patient refused breast exam. MG 3D Screening Mammo W/Cad Bilateral CC and MLO view(s) were taken. There are scattered fibroglandular densities. Nodular density far posterior left breast. These results were verbally communicated with the patient and result sheet given to the patient on 06/24/20. ASSESSMENT: Incomplete: need additional imaging evaluation, BI-RAD 0 RECOMMENDATION: Special view mammogram of the left breast.
--- NOTE | 2020-06-24 15:02 | MM ---
Reason for exam: additional evaluation requested from abnormal screening. History: Family history of breast cancer in paternal grandmother at age 60. MG 3D Work Up W/Cad LT Spot compression CC, spot compression MLO, and LM view(s) were taken of the left breast. There are scattered fibroglandular densities. 1.3cm nodular area between 3-6 o'clock 10cm from nipple. These results were verbally communicated with the patient and result sheet given to the patient on 06/24/20. ASSESSMENT: Incomplete: need additional imaging evaluation, BI-RAD 0 RECOMMENDATION: Ultrasound of the left breast.
--- NOTE | 2020-06-24 15:03 | USB ---
Reason for exam: additional evaluation requested from abnormal screening. History: Family history of breast cancer in paternal grandmother at age 60. US Breast Workup Limited LT Left limited breast ultrasound including focal area of concern, retroareolar and axilla demonstrates a 1.1 x 0.8 x 0.3cm oval, cystic lesion at 4 o'clock and a 1.0 x 2.1 x 0.9cm oval lymph node at the axilla. These results were verbally communicated with the patient and result sheet given to the patient on 06/24/20. ASSESSMENT: Benign, BI-RAD 2 RECOMMENDATION: Return to routine screening mammogram schedule for both breasts.
== END | disposition home or self-care (01) ==
LOC: RADMAMWWP 13:35
PROVIDERS: ATTEND Family Medicine
DX: Z12.31 Encounter for screening mammogram for malignant neoplasm of breast (principal); R92.8 Other abnormal and inconclusive findings on diagnostic imaging of breast
CPT/HCPCS: 77065; 77067; 77063; 76642; G0279; 77061

== ENCOUNTER 2020-09-16 10:17 | Day surgery (SDC) | payer MEDICARE, OTHER ==
[2020-09-15 08:17] VITALS: BMI 33.7
[~2020-09-16 10:17] MED LIST: LACTATED RINGERS 1,000 ML IV SCH
[2020-09-16 11:15] VITALS: TEMP 97.9
[2020-09-16] MEDS ORDERED: PROPOFOL 10 MG/ML 20 ML VIAL IV ONE (12:46)
[2020-09-16] MEDS ORDERED: LIDOCAINE 1% INJ 10MG/ML (20 ML MDV) ONE (12:46)
--- NOTE | 2020-09-16 13:23 | P.PCN ---
Date of Procedure: 09/16/20 Description of Procedure: BRIEF HISTORY: Patient is a 45-year-old female presenting for outpatient colonoscopy for evaluation of right lower quadrant abdominal pain. Patient reports intermittent episodes of right lower quadrant abdominal pain described as cramping improved with bowel movements. Generally bowel movements are every 2-4 days with straining. She in the clinic patient was instructed to increase fiber and water intake. Remote history of colonoscopy in the past. PROCEDURE PERFORMED: Colonoscopy. PREOPERATIVE DIAGNOSIS: . ESTIMATED BLOOD LOSS: Minimal. IV sedation per Anesthesia. PROCEDURE: After informed consent was obtained, the patient, was brought into the endoscopy unit. IV sedation was administered by Anesthesia under continuous monitoring. Digital rectal examination was normal. Initially the Olympus CF-190 flexible video colonoscope was then inserted in the rectum, gradually advanced into the cecum without any difficulty. Careful examination was performed as the scope was gradually being withdrawn. Ileocecal valve and the appendiceal orifice were vis ualized and appeared normal. Prep was excellent. Mucosa of the cecum, ascending colon, transverse colon, descending colon, sigmoid colon, and rectum appeared normal, except for a few scattered diverticula noted in the sigmoid colon. The terminal ileum was intubated and appeared normal. Retroflexion was performed in the rectum and no lesions were seen, low-grade internal. The patient tolerated the procedure well. IMPRESSION: Normal-appearing colon from rectum to cecum and a normal-appearing terminal ileum. Mild sigmoid diverticulosis. RECOMMENDATIONS: Findings of this examination were discussed with the patient. Okay to resume diet. Okay to resume medications. Follow-up in the GI clinic as scheduled. Continue symptomatic management. Continue bowel regimen
[2020-09-16 13:41] VITALS: RESP 16
[2020-09-16 13:43] VITALS: BP 136/88; PULSE 100
== END 2020-09-16 14:14 | disposition home or self-care (01) ==
LOC: ORWHC2ENDO 10:17
PROVIDERS: ATTEND Internal Medicine
DX: K57.30 Diverticulosis of large intestine without perforation or abscess without bleeding (principal); R10.31 Right lower quadrant pain; K08.89 Other specified disorders of teeth and supporting structures; E78.5 Hyperlipidemia, unspecified; Z98.890 Other specified postprocedural states; Z91.040 Latex allergy status; Z88.5 Allergy status to narcotic agent; Z91.013 Allergy to seafood; Z88.8 Allergy status to other drugs, medicaments and biological substances; Z79.899 Other long term (current) drug therapy; Z79.891 Long term (current) use of opiate analgesic; Z98.84 Bariatric surgery status; Z90.49 Acquired absence of other specified parts of digestive tract; Z90.710 Acquired absence of both cervix and uterus; Z96.642 Presence of left artificial hip joint
CPT/HCPCS: 45378; J2001; J2704

== ENCOUNTER → 2021-07-15 | Outpatient (CLI) | payer MEDICARE, OTHER ==
--- NOTE | 2021-07-15 15:47 | US ---
EXAMINATION TYPE: US pelvic complete DATE OF EXAM: 07/15/2021 COMPARISON: CT 09-19-2019 CLINICAL HISTORY: N83.209 unspecified ovarian cyst. TECHNIQUE: Transabdominal (TA). Transabdominal sonographic images of the pelvis were acquired. Date of LMP: Hysterectomy EXAM MEASUREMENTS: Uterus: Surgically absent Right Ovary: 2.8x2.3x1.5 cm Left Ovary: 3.1x2.6x2.3 cm 1. Uterus: Hysterectomy 2019 2. Right Ovary: wnl 3. Left Ovary: wnl 4. Bilateral Adnexa: wnl 5. Posterior cul-de-sac: wnl IMPRESSION: 1. Normal post hysterectomy pelvic ultrasound. 2. No ovarian cyst is present on current exam.
== END | disposition home or self-care (01) ==
LOC: RADUSWWP 13:59
PROVIDERS: ATTEND Family Medicine
DX: Z98.890 Other specified postprocedural states (principal); Z90.710 Acquired absence of both cervix and uterus
CPT/HCPCS: 76856

== ENCOUNTER → 2022-05-20 | Outpatient (CLI) | payer MEDICARE, OTHER ==
--- NOTE | 2022-05-20 10:22 | XR ---
EXAMINATION TYPE: XR shoulder complete RT DATE OF EXAM: 05/20/2022 COMPARISON: NONE HISTORY: Pain TECHNIQUE: Three views are submitted. FINDINGS: The osseous structures are intact. There is no acute fracture or dislocation. AC joint arthropathy n oted. Small subcentimeter soft tissue ossifications could be related to lymph nodes or vascular axill a. IMPRESSION: 1. AC joint arthropathy correlate clinically.
== END | disposition home or self-care (01) ==
LOC: RADXRYALE 09:49
PROVIDERS: ATTEND Physician Assistant
DX: M19.011 Primary osteoarthritis, right shoulder (principal)

== ENCOUNTER → 2023-04-05 | Outpatient (CLI) | payer MEDICARE, OTHER ==
[2023-04-05 13:36] VITALS: BP 121/79; PULSE 93; RESP 16; TEMP 98.1; BMI 33.4
--- NOTE | 2023-04-05 13:50 | P.BASOAP ---
Subjective Progress Note Date: 04/05/23 Principal diagnosis: Morbid obesity, panniculitis Patient here today with complaints of irritation along her skin fold suprapubic. Patient had a hysterectomy performed through a Pfannenstiel incision. Apparently this was at the same location as a previous . She says that ever since then a few years ago she has been having frequent episodes of skin breakdown including bleeding, pain, odor. Patient has tried a variety of topical agents. Weight today 233. Was 222 when last seen 4 years ago. Adequate restriction. Patient seeing a plastic surgeon to discuss panniculectomy. Objective - Vital Signs Vital signs: Vital Signs Temp 98.1 F 04/05/23 13:34 Pulse 93 04/05/23 13:34 Resp 16 04/05/23 13:34 BP 121/79 04/05/23 13:34 Pulse Ox FiO2 Intake & Output 04/04/23 04/05/23 04/05/23 18:59 06:59 18:59 Weight 105.687 kg - Exam Abdomen: Soft, nondistended, nontender, mild skin irritation along the nuclear fold inferiorly Assessment/Plan (1) Morbid obesity Narrative/Plan: 47 row female known to our service from previous lap band placement. Unsure how much fluid is in the band. Patient is interested and panniculectomy. Patient has had frequent episodes of skin breakdown and pain. It does appear patient would benefit from panniculectomy from a medical standpoint. Await upcoming appointment with plastic surgery. Plan: Date: 04/05/23 Initial Weight: 101.151 kg Initial BMI: 32.0 Current Weight: 105.687 kg Current BMI: 33.4 Type of Surgery: Adjustable Gastric Banding Total Volume in Band: Previous Volume: Volume Removed: Volume Added: Band Size:
== END ==
LOC: BARWHC3 13:21
PROVIDERS: ATTEND Surgery
DX: E66.01 Morbid (severe) obesity due to excess calories (principal); M79.3 Panniculitis, unspecified; Z98.890 Other specified postprocedural states; Z46.51 Encounter for fitting and adjustment of gastric lap band; Z68.33 Body mass index [BMI] 33.0-33.9, adult; Z91.040 Latex allergy status; Z88.5 Allergy status to narcotic agent; Z91.013 Allergy to seafood; Z88.8 Allergy status to other drugs, medicaments and biological substances; Z87.891 Personal history of nicotine dependence
CPT/HCPCS: 99211

== ENCOUNTER → 2024-04-11 | Outpatient (CLI) | payer MEDICARE, OTHER ==
--- NOTE | 2024-04-18 07:32 | MM ---
Reason for Exam: Screening (asymptomatic). Last mammogram was performed 3 year(s) and 9 month(s) ago. Patient History: Menarche at age 13. First Full-Term at age 19. Hysterectomy at age 44. Paternal grandmother had breast cancer, age 60. Risk Values: Zonia 5 year model risk: 0.6%. NCI Lifetime model risk: 6.8%. Prior Study Comparison: 06/24/2020 Bilateral Screening Mammogram, [facility]. 06/24/2020 Left Diagnostic Mammogram, [facility]. Tissue Density: There are scattered areas of fibroglandular density. Findings: Analyzed By CAD. Right breast: There is no suspicious group of microcalcifications or new suspicious mass. Left breast: There is no suspicious group of microcalcifications or new suspicious mass. Overall Assessment: Negative, BI-RAD 1 Management: Screening Mammogram of both breasts in [address] [facility] will attempt to contact patient to return for supplemental views and ultrasound if indicated. Patient should continue monthly self-breast exams. A clinical breast exam by your physician is recommended on an annual basis. This exam should not preclude additional follow-up of suspicious palpable abnormalities. Note on Zonia scores and lifetime risk: 1. A Zonia score greater than 3% is considered moderate risk. If this is the case, consider specialist referral to assess eligibility for a risk reducing agent. 2. If overall lifetime risk for the development of breast cancer is 20% or higher, the patient may qualify for future screening with alternating mammogram and breast MRI. Electronically signed and approved by: Kevin Rutledge DO
== END | disposition home or self-care (01) ==
LOC: RADMAMWWP 09:36
PROVIDERS: ATTEND Family Medicine
DX: Z12.31 Encounter for screening mammogram for malignant neoplasm of breast
CPT/HCPCS: 77063; 77067